=== PATIENT | female | born 1955 | race American Indian/Alaskan Native ===

== ENCOUNTER 2016-09-16 18:29 | Emergency (ER) | payer BC ==
[2016-09-16] MEDS ORDERED: TYLENOL PO ONE (20:22)
--- NOTE | 2016-09-16 20:57 | Cat Scan Report ---
FINAL REPORT PROCEDURE: CT CERVICAL SPINE WO CON TECHNIQUE: Computerized tomography of the cervical spine was performed from the skull base to T1 without contrast material. HISTORY: neck pain radiating to left arm COMPARISON: No prior studies are available for comparison. FINDINGS: There is straightening of the cervical spine with slight reversal of lordosis. The skull base and foramen magnum are intact. The cervical vertebrae are intact. There are no fractures. There ossification of the posterior longitudinal ligament at C5, C6 and C7 causing moderate spinal stenosis at these levels There is osteophytic ridging with bilateral foraminal stenosis at these levels. There are ventral bridging osteophytes at C4-C5 and C5-C6. The facet joints are intact. There is no facet dislocation. The prevertebral soft tissues are normal in thickness. IMPRESSION: There are degenerative changes as noted. There is no fracture or malalignment.
--- NOTE | 2016-09-16 20:59 | Cat Scan Report ---
FINAL REPORT PROCEDURE: CT HEAD/BRAIN WO CON TECHNIQUE: Computerized tomography of the head was performed without contrast material. HISTORY: headache COMPARISON: 02/04/2014 FINDINGS: Skull and scalp: Normal. Paranasal sinuses: Normal. Ventricles and subarachnoid spaces: Normal. Cerebrum: No evidence of hemorrhage, acute infarction or mass . Cerebellum and brainstem: No evidence of hemorrhage, acute infarction or mass. Vasculature: Normal. Comments: None. IMPRESSION: Normal Examination
[2016-09-16 21:09] VITALS: BP 133/62
--- NOTE | 2016-09-16 22:05 | Emergency Department Report ---
HPI - General Chief Complaint: Extremity Problem,Nontraumatic Time Seen by Provider: 09/16/16 20:21 - HPI HPI: The patient is a 61-year-old female who presents for evaluation of headache and neck pain. The patient reports 2 days of left temporal headache, aching in quality, moderate in severity, associated with posterior lower neck pain, 10/10 in severity, sharp in quality, radiating into the left arm, exacerbated with turning of the neck to the left or movement of the left arm at the shoulder joint. The patient denies fever, trauma to the head, neck, back, shoulder, chest pain, dyspnea, paresthesias, motor deficit in the arms or legs. She shares that she has a previous history of chronic neck pain. ED Past Medical Hx - Past Medical History Previous Medical History?: No Additional medical history: pneumonia 2 months ago - Surgical History Past Surgical History?: Yes Hx Breast Surgery: Yes Additional Surgical History: right knee surgery - Social History Smoking Status: Never Smoker Substance Use Type: None - Medications Home Medications: Home Medications Medication Instructions Recorded Confirmed Last Taken Type HYDROcodone/APAP 7.5-325 [[place] 1 each PO Q8HR PRN #14 tablet 09/16/16 Unknown Rx 7.5-325 mg TAB] Ibuprofen [Motrin] 800 mg PO Q8HR PRN #15 tablet 09/16/16 Unknown Rx Ondansetron [Zofran TAB] 4 mg PO Q8HR PRN #15 tablet 09/16/16 Unknown Rx ED Review of Systems ROS: Stated complaint: LT SIDE PAIN Other details as noted in HPI Constitutional: denies: fever ENT: denies: throat reports neck pain radiating into the left arm Respiratory: denies: cough, shortness of breath Cardiovascular: denies: chest pain Endocrine: denies unexplained weight loss or gain Gastrointestinal: denies: abdominal pain, nausea Genitourinary: denies: dysuria Musculoskeletal: denies: leg swelling Skin: denies: rash Neurological: reports: headache Hematological/Lymphatic: denies: easy bleeding or easy bruising Psych: denies sadness or hopelessness Physical Exam - Physical Exam Vital Signs: Vital Signs 09/16/16 09/16/16 09/16/16 18:37 19:51 19:55 Temperature 98.1 F Pulse Rate 79 Respiratory 18 Rate Blood Pressure 143/73 144/61 O2 Sat by Pulse 100 98 99 Oximetry 09/16/16 09/16/16 09/16/16 20:01 20:05 20:11 Temperature Pulse Rate Respiratory Rate Blood Pressure 143/66 143/66 144/61 O2 Sat by Pulse 96 99 100 Oximetry 09/16/16 09/16/16 09/16/16 20:15 20:18 20:21 Temperature Pulse Rate Respiratory 18 Rate Blood Pressure 144/61 164/81 O2 Sat by Pulse 100 100 Oximetry 09/16/16 09/16/16 09/16/16 20:25 20:31 20:52 Temperature Pulse Rate Respiratory Rate Blood Pressure 164/81 164/81 164/81 O2 Sat by Pulse 98 82 L Oximetry 09/16/16 09/16/16 20:55 21:00 Temperature Pulse Rate Respiratory Rate Blood Pressure 137/66 133/62 O2 Sat by Pulse 100 100 Oximetry Physical Exam: General: well-nourished, well-developed, no acute distress Head: Normocephalic, atraumatic Eyes: normal sclera ENT: Mucous membranes are pink and moist Neck: trachea midline, neck supple, No neck stiffness, bilateral lower cervical paraspinal musculature tenderness to palpation present, no spinous step-off or obvious deformity Respiratory: Breath sounds equal bilaterally, no wheezing, rales, or rhonchi Cardio: S1 and S2 present, no murmurs, rubs, gallops, capillary refill is brisk Abdomen: Normoactive bowel sounds, soft abdomen, no tenderness Musc: No pitting edema Skin: No rash Neuro: no facial drooping, normal speech, no sensation or motor deficits in the arms or legs bilaterally, reflexes 2+ symmetric on DTR testing Psych: Normal affect ED Course Vital Signs 09/16/16 09/16/16 09/16/16 18:37 19:51 19:55 Temperature 98.1 F Pulse Rate 79 Respiratory 18 Rate Blood Pressure 143/73 144/61 O2 Sat by Pulse 100 98 99 Oximetry 09/16/16 09/16/16 09/16/16 20:01 20:05 20:11 Temperature Pulse Rate Respiratory Rate Blood Pressure 143/66 143/66 144/61 O2 Sat by Pulse 96 99 100 Oximetry 09/16/16 09/16/16 09/16/16 20:15 20:18 20:21 Temperature Pulse Rate Respiratory 18 Rate Blood Pressure 144/61 164/81 O2 Sat by Pulse 100 100 Oximetry 09/16/16 09/16/16 09/16/16 20:25 20:31 20:52 Temperature Pulse Rate Respiratory Rate Blood Pressure 164/81 164/81 164/81 O2 Sat by Pulse 98 82 L Oximetry 09/16/16 09/16/16 20:55 21:00 Temperature Pulse Rate Respiratory Rate Blood Pressure 137/66 133/62 O2 Sat by Pulse 100 100 Oximetry ED Medical Decision Making - Medical Decision Making The patient was seen and examined by myself. The patient is placed on a threat monitoring analyst and continuous pulse ox. On initial evaluation, the patient was found to be in no distress. Evaluation orders were placed. The patient is given a tablet of Tylenol for her headache. CT scan the head is negative for acute intracranial disease process. CT scan the cervical spine reveals degenerative changes, and bilateral lower cervical foraminal stenosis. The patient is informed of potential cervical radiculopathy. On reexamination patient remains without any sensation or motor deficits in the arms or legs bilaterally, and pain is completely resolved. The patient is stable for discharge with outpatient follow-up. The patient is given follow-up and return instructions. The patient expressed understanding and agreed with the plan. The patient is discharged in stable condition. Critical care attestation.: If time is entered above; I have spent that time in minutes in the direct care of this critically ill patient, excluding procedure time. ED Disposition Clinical Impression: Cervical radicular pain, Acute neck pain Acute nonintractable headache Qualifiers: Headache type: unspecified Qualified Code(s): R51 - Headache Disposition: DISCHARGED TO HOME OR SELFCARE Is pt being admited?: No Does the pt Need Aspirin: No Condition: Stable Instructions: Cervical Radiculopathy (ED), Cervical Spinal Stenosis (ED) Additional Instructions: Make sure to follow up with the referred neurosurgeon or another neurosurgeon of your choice for arrangement of definitive management of your degenerative cervical disease. Return to an emergency department immediately should you lose sensation or motor function in the arms or legs. Do not take more than the prescribed dose of norco/pain medicine, or combine or take the pain medicine prescribed to you today with other pain medicine, sleeping medicine or other sedatives, or with alcohol, as doing so may cause central nervous system sedation and respiratory depression, and potentially cause you to stop breathing and . Additionally, do not drive a vehicle, operate heavy machinery, or engage in any activity that would cause harm to yourself or others after taking the pain medicine prescribed to you. Prescriptions: HYDROcodone/APAP 7.5-325 [[place] 7.5-325 mg TAB] 1 each PO Q8HR PRN #14 tablet PRN Reason: Pain Ibuprofen [Motrin] 800 mg PO Q8HR PRN #15 tablet PRN Reason: Pain Ondansetron [Zofran TAB] 4 mg PO Q8HR PRN #15 tablet PRN Reason: Nausea Referrals: BOLA LOREDO MD [Primary Care Provider] - 3-5 Days NOE GIMENEZ MD [Staff Physician] - 3-5 Days Time of Disposition: 22:02
== END 2016-09-16 22:11 | disposition home or self-care (01) ==
LOC: ED 18:29
DX: M54.12 Radiculopathy, cervical region (principal); R51 Headache
CPT/HCPCS: 70450; 72125

== ENCOUNTER 2016-09-21 10:34 | Outpatient (CLI) | payer BC ==
--- NOTE | 2016-09-22 14:42 | Magnetic Resonance Report ---
MRI CERVICAL SPINE WITHOUT CONTRAST: 09/21/16 CLINICAL: Cervical radiculitis. TECHNIQUE: Sagittal T1,T2 and STIR and axial gradient T2* sequences on a 1.5 Blanca magnet. FINDINGS:Straightening of the C-spine with loss of the normal cervical lordosis. Normal alignment through T4. The cerebellar tonsils are normal position. Type II Modic endplate changes at C6-7. The marrow signal is otherwise normal. The spinal cord is normal size with normal signal. C2-3: Intact disc. A small left uncal osteophyte producing mild narrowing of the left neural foramen. C3-4:Intact disc. Right uncal osteophyte and right facet hypertrophy producing moderate stenosis of the right neural foramen. A small central posterior spur and mild central canal stenosis. C4-5: A large central and left paracentral disc-osteophyte complex producing effacement of the thecal sac, mild cord compression and moderate spinal canal stenosis. The spinal canal measures 6 mm in the midline. Calcification of the posterior longitudinal ligament and a midline central spur contribute to the canal stenosis. Left uncal osteophyte and left lateral osteophyte with marked left neural foraminal narrowing. C5-6:Moderate size broad-based central disc protrusion producing effacement of the thecal sac and moderate spinal canal stenosis. Uncal osteophytes and moderate to severe bilateral neural foraminal stenosis. Calcification of the posterior longitudinal ligament and a central posterior spur contribute to the canal stenosis. C6-7:A large central disc-osteophyte produces efface the thecal sac, mild impression of the cord and moderate spinal canal stenosis. Calcification of the posterior longitudinal ligament contributes to the canal stenosis. Uncal osteophytes and mild bilateral neural foraminal stenosis. C7-T1:Intact. IMPRESSION: 1. Degenerative disc disease with central disc-osteophytes, posterior longitudinal ligament calcification and posterior spurs producing spinal canal stenosis from C4-5 through C6-7. 2. Multilevel bilateral neural foraminal stenosis secondary to osteophytes. 3. No cord lesion.
== END 2016-09-21 10:35 | disposition home or self-care (01) ==
LOC: SPVIMAG 10:34
PROVIDERS: ATTEND Internal Medicine
DX: M48.02 Spinal stenosis, cervical region (principal); M50.122 Cervical disc disorder at C5-C6 level with radiculopathy; M25.78 Osteophyte, vertebrae
CPT/HCPCS: 72141

== ENCOUNTER 2016-09-22 16:21 | Outpatient (CLI) | payer BC ==
[2016-09-22 21:56] LABS: Anion Gap 19 mmol/L; Blood Urea Nitrogen 28 mg/dL (7-17); Carbon Dioxide 22 mmol/L (22-30); Potassium 4.6 mmol/L (3.6-5.0); Sodium 136 mmol/L (137-145)
[2016-09-22 21:57] LABS: Alanine Aminotransferase 15 units/L (7-56); Albumin 4.2 g/dL (3.9-5); Albumin/Globulin Ratio 1.4 %; Alkaline Phosphatase 52 units/L (35-129); Bilirubin,Total 0.2 mg/dL (0.1-1.2); Glucose 154 mg/dL (65-100); Total Protein 7.1 g/dL (6.3-8.2)
== END 2016-09-22 16:22 | disposition home or self-care (01) ==
LOC: LAB 16:21
PROVIDERS: ATTEND Internal Medicine
DX: Z79.899 Other long term (current) drug therapy (principal)
CPT/HCPCS: 36415; 80053

== ENCOUNTER 2017-08-21 11:15 | Outpatient (CLI) | payer BC ==
[2017-08-21 11:41] LABS: Hematocrit 37.3 % (30.3-42.9); Hemoglobin 12.7 gm/dl (10.1-14.3); Mean Corpuscular HGB Conc 34 % (30-34); Mean Corpuscular Hemoglobin 30 pg (28-32); Mean Corpuscular Volume 90 fl (79-97); Platelet Count 215 K/mm3 (140-440); Red Blood Count 4.16 M/mm3 (3.65-5.03); Red Cell Distribution Width 13.9 % (13.2-15.2)
[2017-08-21 12:10] LABS: Alanine Aminotransferase 24 units/L (7-56); Albumin 4.3 g/dL (3.9-5); BUN/Creatinine Ratio 12; Blood Urea Nitrogen 11 mg/dL (7-17); Calcium 9.3 mg/dL (8.4-10.2); Chol/HDL Ratio 4.42 %; HDL Cholesterol 38 mg/dL (40-59); Hemolysis Index 4
[2017-08-21 12:17] LABS: Free T4 (Free Thyroxine) 1.18 ng/dL (0.76-1.46)
[2017-08-21 12:59] LABS: LDL Cholesterol,Direct 108 mg/dL (50-130)
== END 2017-08-21 11:16 | disposition home or self-care (01) ==
LOC: LAB 11:15
PROVIDERS: ATTEND Internal Medicine
DX: Z11.3 Encounter for screening for infections with a predominantly sexual mode of transmission (principal); Z13.21 Encounter for screening for nutritional disorder; Z13.0 Encounter for screening for diseases of the blood and blood-forming organs and certain disorders involving the immune mechanism; E03.9 Hypothyroidism, unspecified; E78.2 Mixed hyperlipidemia; Z79.899 Other long term (current) drug therapy
CPT/HCPCS: 36415; 80053; 80061; 82306; 84436; 84439; 84443; 85027; 86592; 86706; 86803; 87806

== ENCOUNTER 2017-08-25 08:12 | Outpatient (CLI) | payer BC ==
--- NOTE | 2017-08-25 15:22 | Mammography Report ---
BILATERAL DIGITAL SCREENING MAMMOGRAM with CAD and DIGITAL BREAST TOMOSYNTHESIS (DBT) : 08/25/17 08:45:00 CLINICAL: Routine screening.History of bilateral benign biopsies. COMPARISON:05/12/14 and 05/27/13 FINDINGS: The breasts are mostly fatty with a few scattered bilateral fibroglandular densities.Left outer asymmetries on 2-D and 3-D CC views require additional imaging. No architectural distortion or suspicious calcifications. Stable right upper postsurgical scar. IMPRESSION: Left asymmetries requiring additional imaging. BI-RADS CATEGORY: 0--Needs Additional Imaging RECOMMENDATION: Recall for left ML and spot magnification CC views and left breast ultrasound if needed. COMMENT: Patient follow-up letters are generated by our [employer] application.
== END 2017-08-25 08:13 | disposition home or self-care (01) ==
LOC: MAMMO 08:12
PROVIDERS: ATTEND Obstetrics & Gynecology
DX: Z12.31 Encounter for screening mammogram for malignant neoplasm of breast (principal); Z98.890 Other specified postprocedural states
CPT/HCPCS: 77063; 77067

== ENCOUNTER 2017-09-05 08:48 | Outpatient (CLI) | payer BC ==
--- NOTE | 2017-09-05 09:21 | Mammography Report ---
Left mammogram: Call back for additional imaging of the outer left breast. Additional spot compression CC images fail to confirm any suspicious architectural distortion or mass and the findings appear unchanged compared to her prior exam in April 2013. No unusual findings in the lateral projection. Impression: Stable exam. Recommendation: Annual mammogram followup. BI-RADS CATEGORY: 1 = Negative ACR BI-RADS MAMMOGRAPHIC CODES: 0 = Needs additional imaging evaluation; 1 = Negative; 2 = Benign; 3 = Probably benign; 4 = Suspicious; 5 = Malignant; 6 = Known biopsy-proven malignancy COMMENT: 1. Dense breast tissue, i.e., adenosis, fibrocystic changes, etc., may obscure an underlying neoplasm. 2. Approximately 10% of cancers are not detected with mammography. 3. A negative mammography report should not delay biopsy if a clinically suspicious mass is present.
== END 2017-09-05 08:49 | disposition home or self-care (01) ==
LOC: MAMMO 08:48
PROVIDERS: ATTEND Obstetrics & Gynecology
DX: R92.8 Other abnormal and inconclusive findings on diagnostic imaging of breast (principal)

== ENCOUNTER 2018-03-07 11:42 | Outpatient (CLI) | payer BC ==
[2018-03-07 12:07] LABS: Basophils # (Auto) 0.1 K/mm3 (0.0-0.1); Basophils % (Auto) 0.6 % (0.0-1.8); Eosinophils % (Auto) 0.1 % (0.0-4.3); Hemoglobin 12.6 gm/dl (10.1-14.3); Lymphocytes # (Auto) 1.6 K/mm3 (1.2-5.4); Lymphocytes % (Auto) 15.5 % (13.4-35.0); Mean Corpuscular HGB Conc 33 % (30-34); Mean Corpuscular Hemoglobin 30 pg (28-32); Mean Corpuscular Volume 91 fl (79-97); Monocytes # (Auto) 0.7 K/mm3 (0.0-0.8); Monocytes % (Auto) 7.1 % (0.0-7.3); Platelet Count 273 K/mm3 (140-440); Red Cell Distribution Width 14.1 % (13.2-15.2)
[2018-03-07 12:37] LABS: Alanine Aminotransferase 27 units/L (7-56); Albumin 4.6 g/dL (3.9-5); BUN/Creatinine Ratio 18; Blood Urea Nitrogen 16 mg/dL (7-17); Calcium 9.8 mg/dL (8.4-10.2); Chol/HDL Ratio 4.27 %; HDL Cholesterol 51 mg/dL (40-59); Hemolysis Index 3; LDL Cholesterol,Direct 166 mg/dL (50-130)
[2018-03-07 12:37] LABS: Creatinine,Urine 68.2 mg/dL (0.1-20.0)
[2018-03-07 12:38] LABS: Microalbumin/Creatinine Ratio 17.5 ug/mg
[2018-03-07 12:51] LABS: Free T4 (Free Thyroxine) 1.09 ng/dL (0.76-1.46); T4 (Thyroxine) 6.6 ug/dL (4.0-12.0)
== END 2018-03-07 11:43 | disposition home or self-care (01) ==
LOC: LAB 11:42
PROVIDERS: ATTEND Internal Medicine
DX: E11.9 Type 2 diabetes mellitus without complications (principal); E03.9 Hypothyroidism, unspecified; E78.2 Mixed hyperlipidemia
CPT/HCPCS: 36415; 80053; 80061; 82043; 82306; 84436; 84439; 84443; 85025

== ENCOUNTER 2018-03-21 12:49 | Outpatient (CLI) | payer BC ==
--- NOTE | 2018-03-21 23:46 | Magnetic Resonance Report ---
FINAL REPORT PROCEDURE: MR LE JOINT LT WO CON TECHNIQUE: Magnetic resonance imaging of the LEFT knee was performed using standard pulse sequences. CPT 55824 HISTORY: PAIN IN RIGHT KNEE COMPARISON: No prior studies are available for comparison. FINDINGS: Bony alignment is within normal limits. Bone marrow signal is normal. An acute fracture is not identified. There is diffuse thinning of the patellar cartilage. Medial lateral collateral ligaments and patellar and quadriceps tendons are intact. Mild degree joint effusion is identified. Anterior and posterior cruciate ligaments are intact. Lateral meniscus demonstrates normal signal without evidence of a tear. There is a complex tear involving the posterior horn medial meniscus. Loose bodies are identified in the posterior medial compartment largest measuring 1.2 centimeters. Moderate degree osteophyte formation is noted. A small Haq's cyst is identified measuring 1.2 centimeters. Thinning of the articular cartilage is no also noted involving medial and lateral femoral condyles posteriorly. IMPRESSION: Moderate degree osteoarthritis with mild degree joint effusion Chondromalacia patella Complex tear involving the posterior horn medial meniscus Loose bodies identified in the posterior medial joint space.
--- NOTE | 2018-03-22 08:16 | Mammography Report ---
BONE DENSITY STUDY: DEFINITIONS: BMD = Bone Mineral Density T-score = BMD related to mean peak bone mass of young adult (mean expressed in Standard Deviation) Z-score = Age matched BMD expressed in SD World Health Organization (WHO) Diagnostic Criteria Normal T-score > -1 SD Osteopenia T-score between -1 and -2.4 SD Osteoporosis T-score -2.5 SD or below FINDINGS: The weighted average BMD of lumbar spine L1-L4 is 1.336 with a T-score of 2.6. The weighted average BMD of hip is 1.092 with a T-score of 1.2. IMPRESSION: The patient's T-score is diagnostic for normal bone density and low relative risk for fracture. NOTE: BMD is not the only risk factor for fracture; also consider factors such as the patient's age, risk of falling, previous osteoporotic fracture, family history of osteoporotic fractures, current smoker, and low body weight. Prasad's triangle is a region of interest in femur, predominantly of trabecular bone. It is not a true anatomic site, and [facility] does not recommend its use clinically.
== END 2018-03-21 12:50 | disposition home or self-care (01) ==
LOC: MAMMO 12:49
PROVIDERS: ATTEND Orthopaedic Surgery
DX: S83.231A Complex tear of medial meniscus, current injury, right knee, initial encounter (principal); M17.11 Unilateral primary osteoarthritis, right knee; M25.461 Effusion, right knee; M22.41 Chondromalacia patellae, right knee; X58.XXXA Exposure to other specified factors, initial encounter; Y93.89 Activity, other specified; Y92.89 Other specified places as the place of occurrence of the external cause; Y99.8 Other external cause status
CPT/HCPCS: 73721; 77080

== ENCOUNTER 2018-10-05 10:07 | Outpatient (CLI) | payer BC ==
[2018-10-05 11:07] LABS: Chol/HDL Ratio 4.95 %; HDL Cholesterol 40 mg/dL (40-59); LDL Cholesterol,Direct 139 mg/dL (50-130)
[2018-10-05 11:33] LABS: Free T4 (Free Thyroxine) 1.27 ng/dL (0.76-1.46)
[2018-10-12 02:56] LABS: Creatinine,Urine 103.2 mg/dL (0.1-20.0); Microalbumin/Creatinine Ratio 11.6 ug/mg
== END 2018-10-05 10:08 | disposition home or self-care (01) ==
LOC: LAB 10:07
PROVIDERS: ATTEND Internal Medicine
DX: E78.2 Mixed hyperlipidemia (principal); E03.9 Hypothyroidism, unspecified; E11.9 Type 2 diabetes mellitus without complications; Z79.899 Other long term (current) drug therapy
CPT/HCPCS: 36415; 80061; 82043; 82565; 84436; 84439; 84443

== ENCOUNTER 2019-01-30 14:17 | Outpatient (CLI) | payer BC ==
[2019-01-30 14:50] LABS: Basophils % (Auto) 0.7 % (0.0-1.8); Eosinophils # (Auto) 0.1 K/mm3 (0.0-0.4); Eosinophils % (Auto) 2.7 % (0.0-4.3); Hematocrit 36.1 % (30.3-42.9); Hemoglobin 11.9 gm/dl (10.1-14.3); Lymphocytes # (Auto) 1.4 K/mm3 (1.2-5.4); Mean Corpuscular HGB Conc 33 % (30-34); Mean Corpuscular Volume 91 fl (79-97); Monocytes # (Auto) 0.4 K/mm3 (0.0-0.8); Monocytes % (Auto) 10.1 % (0.0-7.3); Platelet Count 227 K/mm3 (140-440); Red Blood Count 3.97 M/mm3 (3.65-5.03)
[2019-01-30 15:16] LABS: Alanine Aminotransferase 27 units/L (7-56); Albumin 4.1 g/dL (3.9-5); BUN/Creatinine Ratio 17; Blood Urea Nitrogen 17 mg/dL (7-17); Calcium 9.2 mg/dL (8.4-10.2); Hemolysis Index 28
[2019-01-30 15:23] LABS: Free T4 (Free Thyroxine) 1.09 ng/dL (0.76-1.46)
== END 2019-01-30 14:18 | disposition home or self-care (01) ==
LOC: LAB 14:17
PROVIDERS: ATTEND Internal Medicine
DX: E78.2 Mixed hyperlipidemia (principal); E03.9 Hypothyroidism, unspecified
CPT/HCPCS: 36415; 80053; 82306; 84436; 84439; 84443; 85025

== ENCOUNTER 2019-02-06 07:56 | Outpatient (CLI) | payer BC ==
--- NOTE | 2019-02-06 16:06 | Mammography Report ---
DIGITAL SCREENING MAMMOGRAM WITH CAD, 02/06/2019 INDICATION: Routine screening mammography. History of bilateral benign biopsies. TECHNIQUE: Digital bilateral 2D mammography was obtained in the craniocaudal and mediolateral obliq ue projections. This examination was interpreted with the benefit of Computer-Aided Detection analysi s. COMPARISON: 08/25/2017 FINDINGS: Breast Density: There are scattered areas of fibroglandular density. There is no evidence of dominant mass, suspicious calcifications or architectural distortion in eithe r breast. IMPRESSION: No mammographic evidence of malignancy. Follow up recommendation: Routine yearly BI-RADS Category 2: Benign. A "normal" or negative report should not discourage follow up or biopsy of a clinically significant f inding. A written summary of these findings will be mailed to the patient. The patient will be entered into a mammography reporting system which will generate a reminder letter for the patient's next appointmen t at the appropriate interval. The [employer] recommends yearly mammograms starting at age 40 and continuing as l faiza as a woman is in good health. Breast MRI is recommended for women with an approximate 20-25% or greater lifetime risk of breast cancer, including women with a strong family history of breast or ova carol cancer or who have been treated for Hodgkin's disease. Signer Name: Neno Charles MD Signed: 02/06/2019 4:01 PM Workstation Name: [id number]
== END 2019-02-06 07:57 | disposition home or self-care (01) ==
LOC: SPVWC 07:56
PROVIDERS: ATTEND Internal Medicine
DX: Z12.31 Encounter for screening mammogram for malignant neoplasm of breast (principal)
CPT/HCPCS: 77067